=== PATIENT | female | born 1980 | race Hispanic/Latino ===

== ENCOUNTER 2018-10-28 14:03 | Emergency (ER) | payer OTHER, BC ==
--- NOTE | 2018-10-28 15:06 | RAD REPORT ---
EXAM DESCRIPTION: RAD - Ankle Left 3 View -10/28/2018 3:00 pm CLINICAL HISTORY: Left ankle pain status post injury FINDINGS: No fracture or dislocation is seen.
--- NOTE | 2018-10-28 15:08 | RAD REPORT ---
EXAM DESCRIPTION: RAD - Tib Fib Right - 10/28/2018 3:00 pm CLINICAL HISTORY: Right leg pain FINDINGS: No fracture is seen
--- NOTE | 2018-10-28 15:10 | RAD REPORT ---
EXAM DESCRIPTION: USExtremthom Venous Uni Ltd4 3:02 pm CLINICAL HISTORY: Right leg pain . COMPARISON: None. FINDINGS: Right common femoral, superficial femoral, popliteal and right posterior tibial veins are compressible and demonstrate augmentation. Doppler demonstrates good flow. IMPRESSION: No evidence of deep venous thrombosis involving the right lower extremity.
--- NOTE | 2018-10-28 15:12 | ER ---
Nurse's Notes [facility] Name: Shannon Zapata Age: 38 yrs Sex: Female : 1980 Arrival Date: 10/28/2018 Time: 14:06 Bed 24 Private MD: Diagnosis: Pain in right lower leg Presentation: 10/28 14:11 Presenting complaint: Patient states: About two weeks ago started having pain around la1 right knee then had recent stumbling injury with worsening pain, then was trying to do house chores and made it even worse. Transition of care: patient was not received from another setting of care. Onset of symptoms was October 28, 2018. Risk Assessment: Do you want to hurt yourself or someone else? Patient reports no desire to harm self or others. Initial Sepsis Screen: Does the patient meet any 2 criteria? No. Patient's initial sepsis screen is negative. Does the patient have a suspected source of infection? No. Patient's initial sepsis screen is negative. Care prior to arrival: None. 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 - Social history:: Smoking status: Patient/guardian denies using tobacco. - Ebola Screening: : No symptoms or risks identified at this time. Screenin:03 Abuse screen: Denies threats or abuse. Denies injuries from another. Nutritional aj screening: No deficits noted. Tuberculosis screening: No symptoms or risk factors identified. Fall Risk None identified. Assessment: 14:58 General: Appears in no apparent distress. comfortable, Behavior is calm, cooperative, aj appropriate for age. Pain: Complains of pain in medial aspect of right calf and right calf and lateral aspect of right calf. Neuro: Level of Consciousness is awake, alert, obeys commands, Oriented to person, place, time, situation, Appropriate for age. Respiratory: Airway is patent Respiratory effort is even, unlabored, Respiratory pattern is regular, symmetrical. Derm: Skin is intact, is healthy with good turgor, Skin is pink, warm \T\ dry. normal, Bruising that is dark purple, green, on right merritt and right calf. Vital Signs: 14:12 BP 147 / 75; Pulse 98; Resp 18; Temp 97.8; Pulse Ox 98% on R/A; Weight 92.99 kg; Height la1 5 ft. 7 in. (170.18 cm); 14:12 Body Mass Index 32.11 (92.99 kg, 170.18 cm) la1 ED Course: 14:06 Patient arrived in ED. as 14:12 Triage completed. la1 14:13 Arm band placed on left wrist. la1 14:15 Inés Soler FNP-C [facility]. kb 14:15 Yvan Rashid MD is Attending Physician. kb 14:22 Debora Kaufman, RN is Primary Nurse. iw 15:00 Tib Fib Right XRAY In Process Unspecified. EDMS 15:00 Ankle Left 3 View XRAY In Process Unspecified. EDMS 15:02 US Extremity Venous Unilateral Ltd In Process Unspecified. EDMS 15:02 Ultrasound completed. Patient tolerated well. sg3 15:03 Patient has correct armband on for positive identification. aj 15:27 No provider procedures requiring assistance completed. Patient did not have IV access aj during this emergency room visit. Administered Medications: 15:27 Drug: [place] 5 mg-325 mg 1 tabs Route: PO; aj 15:28 Follow up: Response: Medication administered at discharge. aj Outcome: 15:11 Discharge ordered by MD. kb 15:27 Discharged to home with crutches, with family. aj 15:27 Condition: good 15:27 Discharge instructions given to patient, family, Instructed on discharge instructions, follow up and referral plans. medication usage, crutch walking, Demonstrated understanding of instructions, follow-up care, medications, crutch walking, Prescriptions given X 2. 15:29 Patient left the ED. aj Signatures: Dispatcher [employer] EDHI Inés Soler FNP-C FNP-Myrna Nash RN RN aj Martinez, Amelia as Debora Kaufman, RN Sidney Her RN RN la1 Kathy Cortés sg3 Corrections: (The following items were deleted from the chart) 15:03 14:58 General: Appears in no apparent distress. comfortable, Behavior is calm, aj cooperative, appropriate for age, aj 15:03 14:58 Pain: aj aj
--- NOTE | 2018-10-28 15:12 | EDPHYS ---
Physician Documentation [facility] Name: Shannon Zapata Age: 38 yrs Sex: Female : 1980 Arrival Date: 10/28/2018 Time: 14:06 Bed 24 Private MD: ED Physician Yvan Rashid HPI: 10/28 14:53 This 38 yrs old Female presents to ER via Wheelchair with complaints of Leg kb Pain. 14:53 The patient presents with an injury, pain, swelling, tenderness. The complaints affect kb the lateral aspect of right calf, right calf, medial aspect of right calf and right merritt. Context: The problem was sustained at home, the patient is not able to bear weight, must have assistance. Onset: The symptoms/episode began/occurred 2 week(s) ago, and became worse. Modifying factors: The symptoms are alleviated by nothing. the symptoms are aggravated by weight bearing. Associated signs and symptoms: Pertinent positives: calf tenderness, swelling, Pertinent negatives fever, nausea, numbness, rash, tingling, vomiting, warmth, weakness. Treatment prior to arrival includes: no previous treatment. Severity of symptoms: At their worst the symptoms were moderate, in the emergency department the symptoms are unchanged. The patient has not experienced similar symptoms in the past. The patient has not recently seen a physician. Pt reports she got a ashley horse in her right calf 2 weeks ago and the pain never really stopped. Then she tripped up some steps a few days ago. Has had pain, swelling and bruising to right calf since then. Bruising and swelling to ankle as well with no pain. States she twisted her left ankle when she tripped so she wanted an x-ray done of it since she was here. . 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 - Social history:: Smoking status: Patient/guardian denies using tobacco. - Ebola Screening: : No symptoms or risks identified at this time. ROS: 14:53 Constitutional: Negative for fever, chills, and weight loss, Cardiovascular: Negative kb for chest pain, palpitations, and edema, Respiratory: Negative for shortness of breath, cough, wheezing, and pleuritic chest pain, Abdomen/GI: Negative for abdominal pain, nausea, vomiting, diarrhea, and constipation, Skin: Negative for injury, rash, and discoloration, Neuro: Negative for headache, weakness, numbness, tingling, and seizure. 14:53 MS/extremity: Positive for injury or acute deformity, decreased range of motion, ecchymosis, pain, swelling, tenderness, of the right merritt and medial aspect of right calf and right calf and lateral aspect of right calf. Exam: 15:02 Constitutional: This is a well developed, well nourished patient who is awake, alert, kb and in no acute distress. Head/Face: Normocephalic, atraumatic. Chest/axilla: Normal chest wall appearance and motion. Nontender with no deformity. No lesions are appreciated. Cardiovascular: Regular rate and rhythm with a normal S1 and S2. No gallops, murmurs, or rubs. Normal PMI, no JVD. No pulse deficits. Respiratory: Lungs have equal breath sounds bilaterally, clear to auscultation and percussion. No rales, rhonchi or wheezes noted. No increased work of breathing, no retractions or nasal flaring. Abdomen/GI: Soft, non-tender, with normal bowel sounds. No distension or tympany. No guarding or rebound. No evidence of tenderness throughout. Neuro: Awake and alert, GCS 15, oriented to person, place, time, and situation. Cranial nerves II-XII grossly intact. Motor strength 5/5 in all extremities. Sensory grossly intact. Cerebellar exam normal. Normal gait. 15:02 Musculoskeletal/extremity: Extremities: grossly normal except: noted in the right merritt and medial aspect of right calf and right calf and lateral aspect of right calf: ecchymosis, pain, swelling, tenderness, ROM: intact in all extremities, Circulation is intact in all extremities. Sensation intact. Weight bearing: is unable to bear weight. Vital Signs: 14:12 BP 147 / 75; Pulse 98; Resp 18; Temp 97.8; Pulse Ox 98% on R/A; Weight 92.99 kg; Height la1 5 ft. 7 in. (170.18 cm); 14:12 Body Mass Index 32.11 (92.99 kg, 170.18 cm) la1 MDM: 14:15 Patient medically screened. kb 15:02 Data reviewed: vital signs, nurses notes. Data interpreted: Pulse oximetry: on room air kb is 98 %. Interpretation: normal. 15:10 Counseling: I had a detailed discussion with the patient and/or guardian regarding: the kb historical points, exam findings, and any diagnostic results supporting the discharge/admit diagnosis, radiology results, the need for outpatient follow up, a orthopedic surgeon, to return to the emergency department if symptoms worsen or persist or if there are any questions or concerns that arise at home. 10/28 14:22 Order name: Tib Fib Right XRAY; Complete Time: 15:10 kb 10/28 14:22 Order name: US Extremity Venous Unilateral Ltd; Complete Time: 15:10 kb 10/28 14:22 Order name: Ankle Left 3 View XRAY; Complete Time: 15:10 kb 10/28 15:12 Order name: Crutches; Complete Time: 15:27 kb Administered Medications: 15:27 Drug: [place] 5 mg-325 mg 1 tabs Route: PO; aj 15:28 Follow up: Response: Medication administered at discharge. soren Disposition: 16:55 Co-signature as Attending Physician, Yvan Rashid MD. rn Disposition: 10/28/18 15:11 Discharged to Home. Impression: Pain in right lower leg. - Condition is Stable. - Discharge Instructions: Musculoskeletal Pain, Muscle Strain, [id number]. - Prescriptions for Cyclobenzaprine 10 mg Oral Tablet - take 1 tablet by ORAL route every 8 hours As needed; 21 tablet. Diclofenac Sodium 75 mg Oral Tablet, Delayed Release (E.C.) - take 1 tablet by ORAL route 2 times per day As needed; 30 tablet. - Medication Reconciliation Form, Thank You Letter, Antibiotic Education, Prescription Opioid Use form. - Follow up: Emergency Department; When: As needed; Reason: Worsening of condition. Follow up: Private Physician; When: 2 - 3 days; Reason: Recheck today's complaints, Continuance of care, Re-evaluation by your physician. Signatures: Dispatcher [employer] Inés Johnston, CAROL ANNC [employer] FIELD EXAMINER-Myrna Nash RN Yvan Davalos MD MD rn Attema, Lee RN RN la1 Corrections: (The following items were deleted from the chart) 15:29 15:11 10/28/2018 15:11 Discharged to Home. Impression: Pain in right lower leg. aj Condition is Stable. Forms are Medication Reconciliation Form, Thank You Letter, Antibiotic Education, Prescription Opioid Use. Follow up: Emergency Department; When: As needed; Reason: Worsening of condition. Follow up: Private Physician; When: 2 - 3 days; Reason: Recheck today's complaints, Continuance of care, Re-evaluation by your physician. kb
== END 2018-10-28 15:29 | disposition home or self-care (01) ==
LOC: ER 14:03
DX: M79.661 Pain in right lower leg (principal); Z88.1 Allergy status to other antibiotic agents
CPT/HCPCS: 93971; 99284